=== PATIENT | female | born 1930 | race Caucasian/White ===

== ENCOUNTER 2016-06-27 14:22 | Emergency (ER) | payer MEDICARE, SELFPAY ==
[~2016-06-27 14:22] MED LIST: ACETAMINOPHEN325 MG PO; ACETAMINOPHEN650 MG RC; ACIDOPHILUS1 EAC4 PO; ADVAIR 250-501 EACH IH; ALBUTEROL S3 ML/VIAL NEB; ALLEGRA ALLERGY60 MG PO; AMOXICILLIN500 MG PO; ARTIFICIAL TEAR15 M1 OU; ARTIFICIAL TEAR15 M2 OU; ARTIFICIAL TEAR15 ML OU; ASPIR 8181 MG PO; ATIVAN0.5 MG PO; CARAFATE1 GM PO; CIPRO500 MG PO; COLACE100 MG PO; COUMADIN1 MG PO; DESENEX85 GM TOP; DULCOLAX10 MG RC; DULCOLAX5 MG PO; FEOSOL325 MG PO; FEROSUL325 MG PO; FERROUS SULFAT324 MG PO; FERROUS SULFAT325 MG PO; GAS RELIEF125 M1 PO; GAS-X125 M1 PO; GAVISCON EXTRA355 ML PO; GAVISCON LIQUI355 ML PO; GUMMI BEAR MUL1 EACH PO; HIPREX1000 MG PO; HYDROCODON-ACE1 EAC6 PO; HYDROCODON-ACET15 ML PO; INVANZ IV; IPRAT-ALBUT 0.5-3 ML NEB; KID'S GUMMY BE1 EACH PO; LEVSIN0.125 MG PO; LISINOPRIL2.5 MG PO; MILK OF MA400 MG/5 M PO; NORVASC5 MG PO; NYSTATIN1 EAC1 TOP; OCUVITE TABLET1 TAB PO; OMEPRAZOLE20 MG PO; PHENERGAN25 M1 PO; POLYETHYLENE GL17 GM PO; PREDNISONE10 MG PO; PRESERVISION A1 EAC2 PO; PRESERVISION A1 EACH PO; PRESERVISION L1 EACH PO; PROBIOTIC1 EACH PO; PROMETHAZINE HC25 M1 PO; PROTONIX40 MG PO; SAMSCA15 MG PO; SENNA PLUS TAB1 EACH PO; TESSALON PERLE100 MG PO; TOPROL XL50 MG PO; TRIMETHOPRIM100 MG PO; TRIPLE ANTIBIOT30 GM TOP; ULTRA FLORA PL1 EACH PO; ULTRAM50 MG PO; VIBRAMYCIN100 MG PO; VITAMIN C1000 M1 PO; VITAMIN C1000 MG PO; VITAMIN C500 M1 PO; ZESTRIL2.5 MG PO; [UNRECOGNIZED DRUG - OTHER] IV
== END 2016-06-27 18:55 | disposition home or self-care (01) ==
LOC: ER 14:22
DX: N39.0 Urinary tract infection, site not specified (principal); E87.1 Hypo-osmolality and hyponatremia; I48.91 Unspecified atrial fibrillation; J44.9 Chronic obstructive pulmonary disease, unspecified; I10 Essential (primary) hypertension; Z90.710 Acquired absence of both cervix and uterus; Z76.0 Encounter for issue of repeat prescription; Z87.891 Personal history of nicotine dependence; Z79.82 Long term (current) use of aspirin; Z79.899 Other long term (current) drug therapy; Z79.01 Long term (current) use of anticoagulants; Z91.041 Radiographic dye allergy status; Z88.5 Allergy status to narcotic agent; Z91.040 Latex allergy status; Z88.2 Allergy status to sulfonamides
CPT/HCPCS: 36415; 51701; 96365; J0696

== ENCOUNTER 2016-07-16 16:59 | Emergency (ER) | payer MEDICARE, SELFPAY | END 2016-07-16 18:55 | disposition home or self-care (01) | LOC: ER 16:59 | DX: J44.9 Chronic obstructive pulmonary disease, unspecified (principal); N39.0 Urinary tract infection, site not specified; I48.91 Unspecified atrial fibrillation; I10 Essential (primary) hypertension; K21.9 Gastro-esophageal reflux disease without esophagitis; Z99.81 Dependence on supplemental oxygen; Z90.49 Acquired absence of other specified parts of digestive tract; Z90.711 Acquired absence of uterus with remaining cervical stump; Z87.891 Personal history of nicotine dependence; Z79.01 Long term (current) use of anticoagulants; Z79.82 Long term (current) use of aspirin; Z79.899 Other long term (current) drug therapy; Z88.2 Allergy status to sulfonamides; Z88.5 Allergy status to narcotic agent; Z88.8 Allergy status to other drugs, medicaments and biological substances; Z91.041 Radiographic dye allergy status; Z91.040 Latex allergy status | CPT/HCPCS: 36415; 51701; 87502; 96361; 96365; 96375; J0696 ==

== ENCOUNTER 2016-07-31 16:43 | Inpatient (IN) | payer MEDICARE, SELFPAY ==
--- NOTE | 2016-08-01 02:00 | NUR ---
LOOKING IN ER NOTES AND NOTICED THAT A URINALYSIS (UA) WAS ORDERED, BUT WAS NOT GOTTEN OR IN THE SYSTEM. SO, I PUT A UA IN SYSTEM AND GOT A SAMPLE AT O2:00.
[2016-08-02] MEDS ORDERED: ADVAIR HFA 230-28 GM IH (15:20)
[2016-08-02] MEDS ORDERED: ALLEGRA ALLERGY60 MG PO (15:20)
[2016-08-02] MEDS ORDERED: ASPIR 8181 MG PO (15:21)
[2016-08-02] MEDS ORDERED: ATIVAN0.5 MG PO ×2 (15:21→15:22)
[2016-08-02] MEDS ORDERED: NYSTATIN1 EAC1 TOP (15:22)
[2016-08-02] MEDS ORDERED: IPRAT-ALBUT 0.5-3 ML IH (15:23)
[2016-08-02] MEDS ORDERED: SENSI CARE MOIS TOP (15:23)
[2016-08-02] MEDS ORDERED: OMEPRAZOLE40 MG PO (15:24)
[2016-08-02] MEDS ORDERED: FERROUS SULFAT325 MG PO (15:24)
[2016-08-02] MEDS ORDERED: TOPROL XL25 MG PO (15:25)
[2016-08-02] MEDS ORDERED: SODIUM CHLORI1000 M1 PO (15:25)
[2016-08-02] MEDS ORDERED: NORVASC5 MG PO (15:26)
[2016-08-02] MEDS ORDERED: PHENERGAN25 M1 PO (15:26)
[2016-08-02] MEDS ORDERED: TESSALON PERLE100 MG PO (15:27)
[2016-08-02] MEDS ORDERED: PRESERVISION A1 EACH PO (15:27)
[2016-08-02] MEDS ORDERED: THERA TEARS OU (15:28)
[2016-08-02] MEDS ORDERED: ULTRAM50 MG PO (15:29)
[2016-08-02] MEDS ORDERED: LISINOPRIL2.5 MG PO (15:29)
[2016-08-02] MEDS ORDERED: TUSSIONEX PENN115 ML PO (15:30)
[2016-08-02] MEDS ORDERED: SIMETHICONE80 MG PO (15:31)
[2016-08-02] MEDS ORDERED: ONCE DAILY1 EACH PO (15:32)
[2016-08-02] MEDS ORDERED: CALCIUM CARBON600 MG PO (15:33)
[2016-08-02] MEDS ORDERED: LEVAQUIN750 MG PO (15:33)
== END 2016-08-02 15:55 | disposition home or self-care (01) | DRG 190 ==
LOC: ER 16:43 → MED 19:54
PROVIDERS: ADMIT Internal Medicine
DX: J44.0 Chronic obstructive pulmonary disease with (acute) lower respiratory infection (principal); J18.9 Pneumonia, unspecified organism; J96.10 Chronic respiratory failure, unspecified whether with hypoxia or hypercapnia; E22.2 Syndrome of inappropriate secretion of antidiuretic hormone; I10 Essential (primary) hypertension; R07.89 Other chest pain; Z99.81 Dependence on supplemental oxygen; R33.9 Retention of urine, unspecified; Z87.440 Personal history of urinary (tract) infections; F41.9 Anxiety disorder, unspecified; F32.9 Major depressive disorder, single episode, unspecified; K21.9 Gastro-esophageal reflux disease without esophagitis; N31.9 Neuromuscular dysfunction of bladder, unspecified; I48.0 Paroxysmal atrial fibrillation; G89.29 Other chronic pain; M54.5 Low back pain; M41.9 Scoliosis, unspecified; Z88.2 Allergy status to sulfonamides; Z88.8 Allergy status to other drugs, medicaments and biological substances; Z88.5 Allergy status to narcotic agent; Z91.041 Radiographic dye allergy status; Z91.040 Latex allergy status; Z90.49 Acquired absence of other specified parts of digestive tract; Z82.49 Family history of ischemic heart disease and other diseases of the circulatory system; E87.6 Hypokalemia; Z79.82 Long term (current) use of aspirin; Z79.899 Other long term (current) drug therapy
CPT/HCPCS: 36415; 96365; 97162-GP; J1650

== ENCOUNTER 2016-08-05 11:37 | Inpatient (IN) | payer MEDICARE ==
[~2016-08-05] VITALS: Ht 152.4 cm; Wt 47.8 kg
[~2016-08-05 11:37] MED LIST changes: +ADVAIR HFA 230-28 GM IH; +CALCIUM CARBON600 MG PO; +IPRAT-ALBUT 0.5-3 ML IH; +LEVAQUIN750 MG PO; +OMEPRAZOLE40 MG PO; +ONCE DAILY1 EACH PO; +SENSI CARE MOIS TOP; +SIMETHICONE80 MG PO; +SODIUM CHLORI1000 M1 PO; +THERA TEARS OU; +TOPROL XL25 MG PO; +TUSSIONEX PENN115 ML PO
--- NOTE | 2016-08-08 04:27 | NUR ---
AT 0030 PT'S TELE MONITOR LEAD CAME OFF, SILL WORKER WENT IN TO REPLACE LEAD AND PT REFUSED TO ALLOW HER TO DO SO. DTR STATES "IF MOM SAYS NO THEN SHE MEANS NO". DTR STATES SHE WILL LET US KNOW IF MOM WILL ALLOW US TO REPLACE MONITOR.
--- NOTE | 2016-08-08 04:40 | NUR ---
0430 DTR RANG CALL LIGHT, STATES MOM IS ITCHING AND WANTS CREAM FOR HER BACK. MD ORDERED BENADRYL PO FOR ITCHING AND MED WAS GIVEN. DTR NOTED TO PUT HOT WASH RAGS ON BACK WERE AREA IS RED FROM PREVIOUS MEPILEX, THIS NURSE ADVISED DTR NOT TO PUT HOT RAGS ON PATIENTS BACK DUE TO IRRITATION HOWEVER DTR STATES "I KNOW ITS PROBABLY NOT GOOD FOR HER BUT ITS THE ONLY THING THAT SOOTHES HER AND CONTINUES TO GET RAGS HOT AND PUT ON PTS BACK. PT CONT TO REFUSE NURSE TO APPLY TELE MONITOR AND DTR REMOVED ALL LEADS FROM PT.
== END 2016-08-08 15:30 | disposition home or self-care (01) | DRG 689 ==
LOC: ER 11:37 → MED 13:43
PROVIDERS: ADMIT Internal Medicine
DX: N39.0 Urinary tract infection, site not specified (principal); J18.9 Pneumonia, unspecified organism; J44.0 Chronic obstructive pulmonary disease with (acute) lower respiratory infection; J96.10 Chronic respiratory failure, unspecified whether with hypoxia or hypercapnia; E22.2 Syndrome of inappropriate secretion of antidiuretic hormone; B96.20 Unspecified Escherichia coli [E. coli] as the cause of diseases classified elsewhere; Z16.12 Extended spectrum beta lactamase (ESBL) resistance; R07.89 Other chest pain; E83.42 Hypomagnesemia; I10 Essential (primary) hypertension; F41.9 Anxiety disorder, unspecified; K21.9 Gastro-esophageal reflux disease without esophagitis; N31.9 Neuromuscular dysfunction of bladder, unspecified; Z99.81 Dependence on supplemental oxygen; I48.0 Paroxysmal atrial fibrillation; G89.29 Other chronic pain; M54.5 Low back pain; M41.9 Scoliosis, unspecified; Z86.73 Personal history of transient ischemic attack (TIA), and cerebral infarction without residual deficits; H35.30 Unspecified macular degeneration; Z88.5 Allergy status to narcotic agent; Z88.2 Allergy status to sulfonamides; Z88.8 Allergy status to other drugs, medicaments and biological substances; Z91.041 Radiographic dye allergy status; Z79.82 Long term (current) use of aspirin; Z79.899 Other long term (current) drug therapy; Z90.49 Acquired absence of other specified parts of digestive tract; Z82.49 Family history of ischemic heart disease and other diseases of the circulatory system
CPT/HCPCS: 36415; 97162-GP; 97166; J0696; J1335; J1650; J7050

== ENCOUNTER 2016-08-05 11:37 | Emergency (ER) | payer MEDICARE, SELFPAY | END 2016-08-05 13:42 | disposition critical access hospital (66) | LOC: ER 11:37 | DX: R06.02 Shortness of breath (principal); N39.0 Urinary tract infection, site not specified; D72.829 Elevated white blood cell count, unspecified; I48.91 Unspecified atrial fibrillation; I11.0 Hypertensive heart disease with heart failure; I50.9 Heart failure, unspecified; J44.9 Chronic obstructive pulmonary disease, unspecified; I25.10 Atherosclerotic heart disease of native coronary artery without angina pectoris; Z90.49 Acquired absence of other specified parts of digestive tract; Z90.711 Acquired absence of uterus with remaining cervical stump; Z87.891 Personal history of nicotine dependence; Z88.2 Allergy status to sulfonamides; Z88.5 Allergy status to narcotic agent; Z91.040 Latex allergy status; Z91.041 Radiographic dye allergy status; Z88.8 Allergy status to other drugs, medicaments and biological substances | CPT/HCPCS: 36415; 51701; 96365; J0696 ==

== ENCOUNTER 2016-08-12 16:20 | Observation (INO) | payer MEDICARE, SELFPAY ==
[~2016-08-12] VITALS: Ht 152.4 cm; Wt 52.2 kg
== END 2016-08-13 12:09 | disposition swing bed (61) ==
LOC: ER 16:20 → MED 21:31
PROVIDERS: ADMIT Internal Medicine
DX: N39.0 Urinary tract infection, site not specified (principal); J18.9 Pneumonia, unspecified organism; J44.9 Chronic obstructive pulmonary disease, unspecified; E22.2 Syndrome of inappropriate secretion of antidiuretic hormone; I48.0 Paroxysmal atrial fibrillation; N31.9 Neuromuscular dysfunction of bladder, unspecified; I10 Essential (primary) hypertension; K21.9 Gastro-esophageal reflux disease without esophagitis; Z99.81 Dependence on supplemental oxygen; M54.5 Low back pain; F41.8 Other specified anxiety disorders; Z86.73 Personal history of transient ischemic attack (TIA), and cerebral infarction without residual deficits; Z87.19 Personal history of other diseases of the digestive system; Z90.49 Acquired absence of other specified parts of digestive tract; Z90.711 Acquired absence of uterus with remaining cervical stump; Z79.82 Long term (current) use of aspirin; Z79.891 Long term (current) use of opiate analgesic; Z79.899 Other long term (current) drug therapy; Z88.2 Allergy status to sulfonamides; Z88.6 Allergy status to analgesic agent; Z91.040 Latex allergy status; Z91.041 Radiographic dye allergy status; Z88.8 Allergy status to other drugs, medicaments and biological substances
CPT/HCPCS: 36415; 96361; 96365; 96366; 96367; G0378; J3370; J7050

== ENCOUNTER 2016-08-12 16:20 | Emergency (ER) | payer MEDICARE | END 2016-08-12 21:30 | disposition admitted as inpatient to this hospital (09) | LOC: ER 16:20 | DX: S51.811A Laceration without foreign body of right forearm, initial encounter (principal); R07.9 Chest pain, unspecified; R06.02 Shortness of breath; R05 Cough; J44.9 Chronic obstructive pulmonary disease, unspecified; I48.91 Unspecified atrial fibrillation; I11.0 Hypertensive heart disease with heart failure; I50.9 Heart failure, unspecified; I25.2 Old myocardial infarction; Z79.82 Long term (current) use of aspirin; Z79.899 Other long term (current) drug therapy; Z88.2 Allergy status to sulfonamides; Z88.5 Allergy status to narcotic agent; Z88.8 Allergy status to other drugs, medicaments and biological substances; Z91.040 Latex allergy status; Z91.041 Radiographic dye allergy status; Z87.891 Personal history of nicotine dependence; Z90.711 Acquired absence of uterus with remaining cervical stump; Z90.49 Acquired absence of other specified parts of digestive tract | CPT/HCPCS: 51701; 96365; 96375 ==

== ENCOUNTER 2016-08-13 13:35 | Inpatient (IN) | payer MEDICARE, SELFPAY ==
[~2016-08-13] VITALS: Ht 152.4 cm; Wt 48.8 kg
--- NOTE | 2016-08-15 16:28 | NUR ---
NO IV ACCESS DUE TO INFILTRATION AND DIFFICULT TO OBTAIN. 3 TOTAL ATTEMPTS MADE. DAUGHTER AGREEABLE TO PICC LINE. SEBASTIAN LU NOTIFED OF PICC CONSULT.
--- NOTE | 2016-08-17 15:38 | NUR ---
FLEETS ENEMA GIVEN X 1 PER MD ORDER. PT HAD GOOD RESULTS. PT DISCHARGE TEACHING COMPLETED. SEE CHART/DISCHARGE RECORDS.
== END 2016-08-17 16:00 | disposition home or self-care (01) | DRG 689 ==
LOC: SWI 13:35
PROVIDERS: ADMIT Internal Medicine
PROC: 05HM33Z Insertion of Infusion Device into Right Internal Jugular Vein, Percutaneous Approach (ICD-10-PCS; principal; 2016-08-16)
DX: N39.0 Urinary tract infection, site not specified (principal); J18.9 Pneumonia, unspecified organism; J44.0 Chronic obstructive pulmonary disease with (acute) lower respiratory infection; E22.2 Syndrome of inappropriate secretion of antidiuretic hormone; B96.20 Unspecified Escherichia coli [E. coli] as the cause of diseases classified elsewhere; Z16.12 Extended spectrum beta lactamase (ESBL) resistance; Z99.81 Dependence on supplemental oxygen; N31.9 Neuromuscular dysfunction of bladder, unspecified; I10 Essential (primary) hypertension; I48.0 Paroxysmal atrial fibrillation; K21.9 Gastro-esophageal reflux disease without esophagitis; M54.5 Low back pain; F41.9 Anxiety disorder, unspecified; F32.9 Major depressive disorder, single episode, unspecified; Z86.73 Personal history of transient ischemic attack (TIA), and cerebral infarction without residual deficits; H35.30 Unspecified macular degeneration; Z90.49 Acquired absence of other specified parts of digestive tract; Z90.711 Acquired absence of uterus with remaining cervical stump; Z79.82 Long term (current) use of aspirin; Z79.899 Other long term (current) drug therapy; Z88.5 Allergy status to narcotic agent; Z88.8 Allergy status to other drugs, medicaments and biological substances; Z91.041 Radiographic dye allergy status; Z91.040 Latex allergy status; Z82.49 Family history of ischemic heart disease and other diseases of the circulatory system; Z87.891 Personal history of nicotine dependence; H91.90 Unspecified hearing loss, unspecified ear
CPT/HCPCS: 94664; 97162-GP; 97166; C1751; J1650; J7050

== ENCOUNTER 2016-09-06 21:28 | Inpatient (IN) | payer MEDICARE ==
[~2016-09-06] VITALS: Ht 152.4 cm; Wt 50.4 kg
== END 2016-09-10 13:07 | disposition swing bed (61) | DRG 191 ==
LOC: ER 21:28 → ICU 09-07 01:34 → MED 09-07 01:34 → ICU 09-07 02:05 → MED 09-08 14:29
PROVIDERS: ADMIT Internal Medicine
PROC: 02HV33Z Insertion of Infusion Device into Superior Vena Cava, Percutaneous Approach (ICD-10-PCS; principal; 2016-09-07)
DX: J44.1 Chronic obstructive pulmonary disease with (acute) exacerbation (principal); N39.0 Urinary tract infection, site not specified; E22.2 Syndrome of inappropriate secretion of antidiuretic hormone; J96.10 Chronic respiratory failure, unspecified whether with hypoxia or hypercapnia; M48.50XA Collapsed vertebra, not elsewhere classified, site unspecified, initial encounter for fracture; B96.20 Unspecified Escherichia coli [E. coli] as the cause of diseases classified elsewhere; Z16.12 Extended spectrum beta lactamase (ESBL) resistance; I25.5 Ischemic cardiomyopathy; I48.0 Paroxysmal atrial fibrillation; I10 Essential (primary) hypertension; K21.9 Gastro-esophageal reflux disease without esophagitis; Z90.49 Acquired absence of other specified parts of digestive tract; Z99.81 Dependence on supplemental oxygen; N31.9 Neuromuscular dysfunction of bladder, unspecified; G89.29 Other chronic pain; M54.5 Low back pain; M41.9 Scoliosis, unspecified; F41.9 Anxiety disorder, unspecified; Z86.73 Personal history of transient ischemic attack (TIA), and cerebral infarction without residual deficits; H35.30 Unspecified macular degeneration; K44.9 Diaphragmatic hernia without obstruction or gangrene; Z82.49 Family history of ischemic heart disease and other diseases of the circulatory system; Z88.5 Allergy status to narcotic agent; Z88.2 Allergy status to sulfonamides; Z88.8 Allergy status to other drugs, medicaments and biological substances; Z91.041 Radiographic dye allergy status; Z91.040 Latex allergy status; R07.89 Other chest pain; M81.0 Age-related osteoporosis without current pathological fracture; I71.4 Abdominal aortic aneurysm, without rupture; Z79.82 Long term (current) use of aspirin; Z79.899 Other long term (current) drug therapy
CPT/HCPCS: 36415; 51702; 97161-GP; 97166; C1751; J1650

== ENCOUNTER 2016-09-10 13:08 | Inpatient (IN) | payer MEDICARE ==
[~2016-09-10] VITALS: Ht 152.4 cm; Wt 50.1 kg
--- NOTE | 2016-09-14 05:29 | NUR ---
PATIENT REFUSED TO BE WEIGHED
--- NOTE | 2016-09-15 14:31 | NUR ---
1100 in an out cath 350 orange color urine returned
--- NOTE | 2016-09-15 18:07 | NUR ---
1700 in and out cath done 450 ml returned
--- NOTE | 2016-09-19 05:36 | NUR ---
0030 IN AND OUT CATH 425 ML URINE 0530 IN AND OUT CATH 150 ML URINE
--- NOTE | 2016-09-20 06:50 | NUR ---
IN/OUT CATH @ 0030 500ML RETURN IN/OUT CATH @ 0600 100ML RETURN
== END 2016-09-21 14:50 | disposition home or self-care (01) | DRG 689 ==
LOC: SWI 13:08
PROVIDERS: ADMIT Internal Medicine
DX: N39.0 Urinary tract infection, site not specified (principal); I50.23 Acute on chronic systolic (congestive) heart failure; J44.1 Chronic obstructive pulmonary disease with (acute) exacerbation; E22.2 Syndrome of inappropriate secretion of antidiuretic hormone; J96.10 Chronic respiratory failure, unspecified whether with hypoxia or hypercapnia; B96.20 Unspecified Escherichia coli [E. coli] as the cause of diseases classified elsewhere; Z16.12 Extended spectrum beta lactamase (ESBL) resistance; I11.0 Hypertensive heart disease with heart failure; I25.5 Ischemic cardiomyopathy; I48.0 Paroxysmal atrial fibrillation; K21.9 Gastro-esophageal reflux disease without esophagitis; E83.42 Hypomagnesemia; Z99.81 Dependence on supplemental oxygen; N31.9 Neuromuscular dysfunction of bladder, unspecified; F41.9 Anxiety disorder, unspecified; Z86.73 Personal history of transient ischemic attack (TIA), and cerebral infarction without residual deficits; Z90.49 Acquired absence of other specified parts of digestive tract; Z82.49 Family history of ischemic heart disease and other diseases of the circulatory system; Z88.2 Allergy status to sulfonamides; Z88.8 Allergy status to other drugs, medicaments and biological substances; Z91.040 Latex allergy status; Z88.5 Allergy status to narcotic agent; Z91.041 Radiographic dye allergy status; Z79.82 Long term (current) use of aspirin; Z79.899 Other long term (current) drug therapy
CPT/HCPCS: 92610; 97162-GP; 97166; J1650

== ENCOUNTER 2016-09-25 14:38 | Emergency (ER) | payer MEDICARE | END 2016-09-25 18:12 | disposition critical access hospital (66) | LOC: ER 14:38 | DX: A41.9 Sepsis, unspecified organism (principal); K52.9 Noninfective gastroenteritis and colitis, unspecified; J18.9 Pneumonia, unspecified organism; I11.0 Hypertensive heart disease with heart failure; I50.9 Heart failure, unspecified; I48.91 Unspecified atrial fibrillation; Z90.711 Acquired absence of uterus with remaining cervical stump; Z90.49 Acquired absence of other specified parts of digestive tract; Z87.891 Personal history of nicotine dependence; Z99.81 Dependence on supplemental oxygen; Z86.73 Personal history of transient ischemic attack (TIA), and cerebral infarction without residual deficits | CPT/HCPCS: 36415; 51702; 96361; 96365; 96375; J3370; Q9967 ==

== ENCOUNTER 2016-09-25 14:38 | Inpatient (IN) | payer MEDICARE, OTHER ==
[~2016-09-25] VITALS: Ht 152.4 cm; Wt 53.3 kg
== END 2016-09-28 10:00 | disposition swing bed (61) | DRG 871 ==
LOC: ER 14:38 → MED 18:13
PROVIDERS: ADMIT Internal Medicine
PROC: 05H533Z Insertion of Infusion Device into Right Subclavian Vein, Percutaneous Approach (ICD-10-PCS; principal; 2016-09-26)
DX: A41.9 Sepsis, unspecified organism (principal); J18.9 Pneumonia, unspecified organism; N39.0 Urinary tract infection, site not specified; E22.2 Syndrome of inappropriate secretion of antidiuretic hormone; B96.1 Klebsiella pneumoniae [K. pneumoniae] as the cause of diseases classified elsewhere; Y95 Nosocomial condition; J44.9 Chronic obstructive pulmonary disease, unspecified; Z99.81 Dependence on supplemental oxygen; I48.0 Paroxysmal atrial fibrillation; D64.9 Anemia, unspecified; K52.9 Noninfective gastroenteritis and colitis, unspecified; N31.9 Neuromuscular dysfunction of bladder, unspecified; I10 Essential (primary) hypertension; K21.9 Gastro-esophageal reflux disease without esophagitis; M54.5 Low back pain; F41.9 Anxiety disorder, unspecified; F32.9 Major depressive disorder, single episode, unspecified; Z86.73 Personal history of transient ischemic attack (TIA), and cerebral infarction without residual deficits; H35.30 Unspecified macular degeneration; Z87.440 Personal history of urinary (tract) infections; Z90.49 Acquired absence of other specified parts of digestive tract; Z90.711 Acquired absence of uterus with remaining cervical stump; Z79.82 Long term (current) use of aspirin; Z79.899 Other long term (current) drug therapy; Z88.2 Allergy status to sulfonamides; Z88.8 Allergy status to other drugs, medicaments and biological substances; Z88.5 Allergy status to narcotic agent; Z91.041 Radiographic dye allergy status; Z82.49 Family history of ischemic heart disease and other diseases of the circulatory system
CPT/HCPCS: 36415; 87507; C1751; J1650; J3370; J7040; P9021; Q9967

== ENCOUNTER 2016-09-28 10:20 | Inpatient (IN) | payer MEDICARE ==
[~2016-09-28] VITALS: Ht 152.4 cm; Wt 53.6 kg
--- NOTE | 2016-09-30 06:20 | NUR ---
THIS AM PT REFUSED TO HAVE BLOOD DRAWN FROM PICC LINE. PT INSISTED THAT LABS BE DONE VIA BUTTERFLY NEEDLE STICK. PT REPORTS FEAR OF TOO MUC BLOOD BEING REMOVED FROM PICC AND BLOOD LEVELS TO DROP AGAIN. PT EDUCATED ON RATIONALE FOR PICC DRAWS AND THE AMOUNT ONLY NEEDED. PT REFUSED TO LISTEN TO STAFF.
== END 2016-10-02 19:01 | disposition home or self-care (01) | DRG 871 ==
LOC: SWI 10:20
PROVIDERS: ADMIT Internal Medicine
PROC: 30233N1 Transfusion of Nonautologous Red Blood Cells into Peripheral Vein, Percutaneous Approach (ICD-10-PCS; principal; 2016-09-29)
DX: A41.9 Sepsis, unspecified organism (principal); J18.9 Pneumonia, unspecified organism; N39.0 Urinary tract infection, site not specified; E22.2 Syndrome of inappropriate secretion of antidiuretic hormone; B96.1 Klebsiella pneumoniae [K. pneumoniae] as the cause of diseases classified elsewhere; Y95 Nosocomial condition; D64.9 Anemia, unspecified; I48.0 Paroxysmal atrial fibrillation; N31.9 Neuromuscular dysfunction of bladder, unspecified; J44.9 Chronic obstructive pulmonary disease, unspecified; R19.5 Other fecal abnormalities; E83.42 Hypomagnesemia; Z99.81 Dependence on supplemental oxygen; I10 Essential (primary) hypertension; K21.9 Gastro-esophageal reflux disease without esophagitis; M54.5 Low back pain; F41.9 Anxiety disorder, unspecified; F32.9 Major depressive disorder, single episode, unspecified; Z86.73 Personal history of transient ischemic attack (TIA), and cerebral infarction without residual deficits; H35.30 Unspecified macular degeneration; Z87.440 Personal history of urinary (tract) infections; Z90.49 Acquired absence of other specified parts of digestive tract; Z90.711 Acquired absence of uterus with remaining cervical stump; Z79.82 Long term (current) use of aspirin; Z79.899 Other long term (current) drug therapy; Z88.5 Allergy status to narcotic agent; Z88.2 Allergy status to sulfonamides; Z88.8 Allergy status to other drugs, medicaments and biological substances; Z91.041 Radiographic dye allergy status; Z91.040 Latex allergy status; Z82.49 Family history of ischemic heart disease and other diseases of the circulatory system
CPT/HCPCS: 97161-GP; 97166

== ENCOUNTER 2016-10-11 18:24 | Inpatient (IN) | payer MEDICARE ==
[~2016-10-11] VITALS: Ht 152.4 cm; Wt 50.1 kg
--- NOTE | 2016-10-14 01:09 | NUR ---
PT HAD TEMP AT 2200 OF 100.1 THIS NURSE REINFORCED TH ENEED FOR SHCED ACET HOWEVER PT REFUSED TO TAKE IT.
--- NOTE | 2016-10-17 06:18 | NUR ---
PT REFUSED TEMPERATURE LAB THIS A.M.
--- NOTE | 2016-10-17 15:33 | NUR ---
1525 - PATIENT DISCHARGED HOME/MD ORDER. PICC LINE REMAINED/MD ORDER FOR OUTPATIENT IV ANTIBIOTIC INFUSION. APPTS. AND PRESCRIPTIONS GIVEN. OUT VIA WHEELCHAIR. HOME WITH DAUGHTER VIA PRIVATE VEHICLE.
== END 2016-10-17 15:25 | disposition home or self-care (01) | DRG 689 ==
LOC: ER 18:24 → MED 21:41
PROVIDERS: ADMIT Internal Medicine
DX: N39.0 Urinary tract infection, site not specified (principal); I50.23 Acute on chronic systolic (congestive) heart failure; E22.2 Syndrome of inappropriate secretion of antidiuretic hormone; K52.9 Noninfective gastroenteritis and colitis, unspecified; B96.20 Unspecified Escherichia coli [E. coli] as the cause of diseases classified elsewhere; Z16.12 Extended spectrum beta lactamase (ESBL) resistance; J44.9 Chronic obstructive pulmonary disease, unspecified; Z99.81 Dependence on supplemental oxygen; I11.0 Hypertensive heart disease with heart failure; I48.0 Paroxysmal atrial fibrillation; E83.42 Hypomagnesemia; E87.6 Hypokalemia; N31.9 Neuromuscular dysfunction of bladder, unspecified; K21.9 Gastro-esophageal reflux disease without esophagitis; M54.5 Low back pain; F41.9 Anxiety disorder, unspecified; F32.9 Major depressive disorder, single episode, unspecified; Z86.73 Personal history of transient ischemic attack (TIA), and cerebral infarction without residual deficits; H35.30 Unspecified macular degeneration; Z87.440 Personal history of urinary (tract) infections; Z90.49 Acquired absence of other specified parts of digestive tract; Z90.711 Acquired absence of uterus with remaining cervical stump; Z79.82 Long term (current) use of aspirin; Z79.899 Other long term (current) drug therapy; Z88.5 Allergy status to narcotic agent; Z88.2 Allergy status to sulfonamides; Z88.8 Allergy status to other drugs, medicaments and biological substances; Z91.041 Radiographic dye allergy status; Z87.891 Personal history of nicotine dependence; Z82.49 Family history of ischemic heart disease and other diseases of the circulatory system; H91.90 Unspecified hearing loss, unspecified ear
CPT/HCPCS: 36415; 87507; C1751; J1650; J2550

== ENCOUNTER 2016-10-11 18:24 | Emergency (ER) | payer MEDICARE | END 2016-10-11 21:40 | disposition critical access hospital (66) | LOC: ER 18:24 | DX: I11.0 Hypertensive heart disease with heart failure (principal); I50.9 Heart failure, unspecified; K52.9 Noninfective gastroenteritis and colitis, unspecified; N39.0 Urinary tract infection, site not specified; R53.1 Weakness; I48.91 Unspecified atrial fibrillation; J44.9 Chronic obstructive pulmonary disease, unspecified; Z87.01 Personal history of pneumonia (recurrent); Z79.82 Long term (current) use of aspirin; Z79.899 Other long term (current) drug therapy; Z88.2 Allergy status to sulfonamides; Z88.5 Allergy status to narcotic agent; Z91.040 Latex allergy status; Z91.041 Radiographic dye allergy status; Z88.8 Allergy status to other drugs, medicaments and biological substances | CPT/HCPCS: 36415; 51702; 96365; 96375; J2550 ==